=== PATIENT | male | born 1970 | race Caucasian/White ===

== ENCOUNTER 2017-05-15 18:42 | Emergency (ER) | payer OTHER | END 2017-05-15 19:45 | disposition home or self-care (01) | LOC: ER 18:42 | DX: S81.812A Laceration without foreign body, left lower leg, initial encounter (principal); W26.8XXA Contact with other sharp object(s), not elsewhere classified, initial encounter; Y92.009 Unspecified place in unspecified non-institutional (private) residence as the place of occurrence of the external cause; Z79.891 Long term (current) use of opiate analgesic; Z79.899 Other long term (current) drug therapy | CPT/HCPCS: 12002; 99070; 99282-25 ==

== ENCOUNTER 2017-05-18 12:52 | Emergency (ER) | payer OTHER | END 2017-05-18 14:17 | disposition home or self-care (01) | LOC: ER 12:52 | DX: S81.812D Laceration without foreign body, left lower leg, subsequent encounter (principal); L03.116 Cellulitis of left lower limb; X58.XXXD Exposure to other specified factors, subsequent encounter; M54.5 Low back pain; J60 Coalworker's pneumoconiosis; Z79.899 Other long term (current) drug therapy; Z79.891 Long term (current) use of opiate analgesic | CPT/HCPCS: 96372; 99282-25 ==